=== PATIENT | male | born 1940 | race Caucasian/White ===

== ENCOUNTER 2021-11-16 11:26 | Emergency (ER) | payer MEDICARE, SELFPAY ==
--- NOTE | ~2021-11-16 | XR_ITS ---
EXAMINATION: XR finger 5th LT min 2V DATE: 11/16/2021 12:30 INDICATION: Fracture of left fifth proximal phalanx status post reduction. TECHNIQUE: 4 views of left hand fifth digit were obtained. COMPARISON: Left hand fifth digit radiographs at 12:06 PM FINDINGS: There is an oblique fracture of metaphysis of fifth proximal phalanx. The distal fracture f ragment demonstrates one cortical width radial displacement and impaction. There is a chip of bone at ulnar aspect of head of fifth metacarpal. 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 IMPRESSION: 1. Oblique fracture of metaphysis of fifth proximal phalanx with improvement in alignment. 2. Chip of bone at ulnar aspect of head of fifth metacarpal, which may be an avulsion fracture. Reviewed, dictated and finalized at location A. OVER IMPRESSION: 1. Oblique fracture of metaphysis of fifth proximal phalanx with improvement in alignment. 2. Chip of bone at ulnar aspect of head of fifth metacarpal, which may be an av ulsion fracture.
--- NOTE | ~2021-11-16 | XR_ITS ---
EXAMINATION: XR finger 5th LT min 2V DATE: 11/16/2021 12:08 INDICATION: Left hand fifth digit injury. TECHNIQUE: 4 views of left hand fifth digit were obtained. COMPARISON: None. FINDINGS: There is an oblique fracture of metaphysis of fifth proximal phalanx. The distal fracture f ragment demonstrates impaction, 2 mm radial displacement, and 28 degrees ulnar angulation. There is a calcification at ulnar aspect of metacarpophalangeal joint. There is mild osteoarthritis of fifth pr oximal interphalangeal joint. IMPRESSION: 1. Oblique fracture of metaphysis of fifth proximal phalanx. Reviewed, dictated and finalized at location A. D DESIGN ENGINEER
[2021-11-16 11:53] VITALS: BP 127/74; PULSE 78; RESP 16; TEMP 36.3; O2SAT 98
--- NOTE | 2021-11-16 12:55 | ED.UPPEXIN ---
HPI - Extremity Injury (Upper) General Chief Complaint: Extremity Injury, Upper Stated Complaint: possible break L pinky finger Source: patient Mode of arrival: ambulatory Limitations: no limitations History of Present Illness HPI narrative: this is a an 81-year-old gentleman that presents with injury to his left 5th finger, after he injured it after a fall otherwise there is pain level about a 2/10 has no numbness or tingling. complaint: injury to: left Onset (ago): hour(s) Other Extremity Injury: Left: fingers ( 5th finger) Handedness: right Place: home Severity: moderate Severity scale (1-10): 3 Relieving factors: immobilization Related Data Home Medications Medication Instructions Recorded Confirmed [facility] Vitamin 2 tab-cap PO DAILY 10/10/19 11/16/21 lisinopril 10 mg PO DAILY 10/10/19 11/16/21 lysine [L-Lysine] 500 mg PO DAILY 10/10/19 11/16/21 omega 7-wat-evx-fish oil [Fish Oil] 1 cap PO TID 10/10/19 11/16/21 simvastatin 40 mg PO DAILY 10/10/19 11/16/21 timolol maleate 1 drp OPHTHALMIC (EYE) DAILY 10/10/19 11/16/21 Adult Low Dose Aspirin 81 mg PO DAILY 11/16/21 11/16/21 Allergies Allergy/AdvReac Type Severity Reaction Status Date / Time No Known Allergies Allergy Verified 11/16/21 11:58 Review of Systems Review of Systems: All systems reviewed & are unremarkable except as noted in HPI and below [facility] Past Medical History Medical History (Updated 11/16/21 @ 13:07 by Michael Blackman MD) Arthritis Hyperlipidemia Hypertension Myocardial infarct, old Exam HENMT: Head: normal to inspection Eyes: Conjunctivae: conjunctivae normal Pupils: Equal, round and reactive pupils present Neck: Neck: normal visual inspection and no lymphadenopathy Chest: Chest palpation & inspection: normal inspection of the chest Resp: Effort & Inspection: normal respiratory effort Cardio: Rate: regular rate Rhythm: regular rhythm GI: GI Palp: Yes Soft to palpation Percussion: Yes normal to percussion : Testes: Testes normal Back/Spine/Pelvis: Back: no CVA tenderness Skin: General skin exam: normal color Rashes: no rashes Neuro: General: patient oriented x3 Extrem: Other: Undisplaced left 5th finger with some swelling Psych: Appearance: grossly normal Mental Status: mental status grossly normal Course Course Emergency Course: reviewed x-ray which showed a proximal left 5th finger fracture with dislocation, post reduction shows improved alignment and reviewed reviewed this with the patient added a ulnar gutter to stabilize the proximal fracture of his left 5th finger. Vital Signs Vital signs: Vital Signs Temperature 36.3 C L 11/16/21 11:53 Pulse Rate 78 11/16/21 11:53 Respiratory Rate 16 11/16/21 11:53 Blood Pressure 127/74 11/16/21 11:53 Pulse Oximetry 98 11/16/21 11:53 Temperature 36.3 C L 11/16/21 11:53 Pulse Rate 78 11/16/21 11:53 Respiratory Rate 16 11/16/21 11:53 Blood Pressure 127/74 11/16/21 11:53 Pulse Oximetry 98 11/16/21 11:53 Critical Care Time Critical Care Time Critical Care Time: No Discharge Plan Discharge Clinical Impression: Finger fracture, left Qualifiers: Encounter type: initial encounter Finger: little finger Fracture type: closed Phalanx: proximal Fracture alignment: displaced Qualified Code(s): S62.617A - Displaced fracture of proximal phalanx of left little finger, initial encounter for closed fracture Patient Disposition: Home, Self-Care Condition: Stable Instructions: Antibiotic Form, Finger Fracture (ED) Additional Instructions: advised to take Tylenol or Motrin for pain and discomfort and to follow-up with primary care physician within the next week for further evaluation and treatment possible referral to Plastic surgery or Orthopedics. Prescriptions: No Action Adult Low Dose Aspirin 81 mg PO DAILY RF: 0 simvastatin 40 mg tablet 40 mg PO DAILY RF: 0 timolol maleate 0.25 % drops
== END 2021-11-16 13:16 | disposition home or self-care (01) ==
PROVIDERS: Emergency Provider Emergency Medicine; PCP Family Medicine
DX: S62.617A Displaced fracture of proximal phalanx of left little finger, initial encounter for closed fracture (principal); W19.XXXA Unspecified fall, initial encounter; E78.5 Hyperlipidemia, unspecified; I10 Essential (primary) hypertension
CPT/HCPCS: 26725; 73140; 99283; 99285

== ENCOUNTER 2021-11-26 09:28 | Outpatient (CLI) | payer MEDICARE, SELFPAY ==
--- NOTE | ~2021-11-26 | XR_ITS ---
XR hand LT min 3V DATE: 11/26/2021 09:45 INDICATION: Pain and swelling of left hand following fall 2010 days ago TECHNIQUE: 3 views COMPARISON: None FINDINGS: Diffuse osteopenia. There is prominent osteoarthritic change at the first carpometacarpal joint. There is a cortical fracture of the medial aspect of the head of the fifth metacarpal bone. There is a linear oblique fracture through the metaphysis and proximal shaft of the proximal phalanx of the fifth digit with no significant displacement. IMPRESSION: Small linear cortical fracture of the ulnar aspect of the head of the fifth metacarpal sallie ne Linear oblique minimally displaced fracture of the metaphysis and proximal shaft of the proximal phal anx of the fifth digit Osteopenia Prominent osteoarthritic change of first carpal metacarpal joint Reviewed, dictated and finalized at location A. DDED SYSTEMS DESIGNER IMPRESSION: Small linear cortical fracture of the ulnar aspect of the head of t he fifth metacarpal bone Linear oblique minimally displaced fracture of the metaphysis and proximal shaf t of the proximal phalanx of the fifth digit Osteopenia Prominent osteoarthritic change of first carpal metacarpal joint
== END 2021-11-26 09:29 | disposition home or self-care (01) ==
LOC: CHSIMG 09:31
PROVIDERS: PCP Family Medicine; Visit Provider Orthopaedic Surgery
DX: M79.642 Pain in left hand (principal)
CPT/HCPCS: 73130

== ENCOUNTER 2021-12-24 07:48 | Outpatient (CLI) | payer MEDICARE, SELFPAY ==
--- NOTE | ~2021-12-24 | XR_ITS ---
XR hand LT min 3V DATE: 12/24/2021 08:06 INDICATION: Fracture follow-up TECHNIQUE: 4 views COMPARISON: 11/26/2021 left hand FINDINGS: There is a minimally displaced linear oblique fracture through the metaphysis and proximal shaft of the proximal phalanx of the fifth digit without interval change in position or alignment sin ce 11/26/2021. There is subtle increased density and diminished lucency at the fracture site consisten t with healing. Small linear densities again noted at the ulnar aspect of the head of the fifth metacarpal bone; smal l cortical fracture is not excluded. Prominent osteophytic change at the first carpometacarpal joint. Diffuse osteopenia. IMPRESSION: Healing fracture of the proximal phalanx of the fifth digit without interval change in po sition or alignment Possible small linear cortical fracture at the ulnar aspect of the head of the fifth metacarpal Reviewed, dictated and finalized at location B. LOPMENT TECHNICAL LEAD IMPRESSION: Healing fracture of the proximal phalanx of the fifth digit without interval change in position or alignment Possible small linear cortical fracture at the ulnar aspect of the head of the fifth metacarpal
== END 2021-12-24 07:49 | disposition home or self-care (01) ==
LOC: CHSLAB 07:50
PROVIDERS: PCP Family Medicine; Visit Provider Orthopaedic Surgery
DX: M79.642 Pain in left hand (principal)
CPT/HCPCS: 73130

== ENCOUNTER 2024-10-15 09:47 | Emergency (ER) | payer MEDICARE, SELFPAY ==
[2024-10-15 09:49] VITALS: BP 119/46; PULSE 92; RESP 18; TEMP 37.1; O2SAT 97
[2024-10-15 09:59] VITALS: O2SAT 97
--- NOTE | 2024-10-15 09:59 | PC.NURSE ---
Covid culture sent to lab
--- NOTE | 2024-10-15 10:27 | ED.URI ---
HPI - URI/Sore Throat General Chief Complaint: Upper Respiratory Infection Stated Complaint: flu like symptoms Source: patient Mode of arrival: ambulatory Limitations: no limitations History of Present Illness HPI Narrative: this is a an 84-year-old male presents with some chills and feeling feverish although patient is afebrile, denies any cough congestion there is no nasal discharge no shortness of breath or chest pain. The patient called his primary care and was told to come to the emergency department to have COVID performed. Onset (ago): day(s) Consistency: constant Severity: mild Related Data Home Medications Medication Instructions Recorded Confirmed omega 9-rhp-ivt-fish oil 1,000 mg 1 cap PO TID 10/10/19 10/15/24 (120 mg-180 mg) capsule (Fish Oil) timolol maleate 0.25 % eye drops 1 drp ophthalmic (eye) DAILY 10/10/19 10/15/24 Adult Low Dose Aspirin 81 mg PO DAILY 11/16/21 10/15/24 Allergies Allergy/AdvReac Type Severity Reaction Status Date / Time No Known Allergies Allergy Verified 10/15/24 10:00 Review of Systems Review of Systems: All systems reviewed & are unremarkable except as noted in HPI and below PMF[facility] Past Medical History Medical History Arthritis History of ASCVD (arteriosclerotic cardiovascular disease) Hyperlipidemia Hypertension Myocardial infarct, old Surgical History Surgical History History of hernia repair bilateral inguinal 02/2011 History of PTCA 1996 Family History Family History Other Arthritis High cholesterol Hypertension Social History Social History Smoking status: Never smoker Alcohol intake: never Substance use: never Substance use type: does not use Lack of Transportation: No Lack of Food: Never True Current Housing: I Have Housing Concerned About Future Housing: No Difficulty Paying Gas/Electric Bills: No Difficulty Paying for Meds: No Currently Unemployed: No Education: High School Diploma/GED Living arrangements: with family Occupation/Education: retired Gender identity (if verbalized by the patient): Male Sexual Orientation (if Verbalized by the Patient): Straight or Heterosexual Spiritual care concerns: No Exam Const: General: healthy appearing, no acute distress and alert Nutritional Appearance: well nourished Orientation/consciousness: patient oriented x3 HENMT: Head: normal to inspection Eyes: Conjunctivae: conjunctivae normal Neck: Neck: normal visual inspection and no lymphadenopathy Chest: Chest palpation & inspection: normal inspection of the chest Resp: Effort & Inspection: normal respiratory effort Auscultation: clear to auscultation bilaterally Cardio: Rate: regular rate Rhythm: regular rhythm GI: GI Palp: Yes Soft to palpation : General: Yes bladder normal to palpation Skin: General skin exam: normal color Rashes: no rashes Neuro: General: patient oriented x3 and moves all extremities Course Course Emergency Course: Patient took Tylenol home currently afebrile COVID RSV and influenza performed and reviewed with patient. Vital Signs Vital signs: Vital Signs Temperature 37.1 C 10/15/24 09:49 Pulse Rate 92 10/15/24 09:49 Respiratory Rate 18 10/15/24 09:49 Blood Pressure 119/46 L 10/15/24 09:49 Pulse Oximetry 97 10/15/24 09:49 Oxygen Delivery Room Air 10/15/24 09:49 Temperature 37.1 C 10/15/24 09:49 Pulse Rate 92 10/15/24 09:49 Respiratory Rate 18 10/15/24 09:49 Blood Pressure 119/46 L 10/15/24 09:49 Pulse Oximetry 97 10/15/24 09:59 Oxygen Delivery Room Air 10/15/24 09:59 MDM - URI/Sore Throat Lab Data Labs: Lab Results 10/15/24 Range/Units 09:51 Influenza A (RT-PCR) Pending Influenza B (RT-PCR) Pending RSV (RT-PCR) Pending SARS-CoV-2 RNA (RT-PCR) Pending Critical Care Time Critical Care Time Critical Care Time: No Discharge Plan Discharge Clinical Impression: Viral infection Patient Disposition: Home, Self-Care Condition: Stable Instructions: Antibiotic Form, Viral Syndrome (ED) Additional Instructions: Advise to continue Tylenol as needed get rest drink plenty of fluids and follow with primary if symptoms persist or worsen. Prescriptions: No Action Adult Low Dose Aspirin 81 mg PO DAILY lisinopril 10 mg tablet 10 mg PO DAILY Qty: 90 1RF simvastatin 40 mg tablet 40 mg PO DAILY Qty: 90 1RF timolol maleate 0.25 % drops 1 drp ophthalmic (eye) DAILY Rx Instructions: each eye omega 7-mxw-ejo-fish oil [Fish Oil] 1,000 mg (120 mg-180 mg) Capsule 1 cap PO TID Follow-up/Referrals: UNKNOWN,DOCTOR [Non-Staff] - Time of Disposition: 10:51
[2024-10-15 10:32] LABS: SARS-CoV-2 RNA PCR Negative (Negative)
[2024-10-15 10:49] LABS: Influenza A QL RT-PCR Negative (Negative); Influenza B QL RT-PCR Negative (Negative); RSV RNA, RT-PCR Negative (Negative)
== END 2024-10-15 10:56 | disposition home or self-care (01) ==
PROVIDERS: Emergency Provider Emergency Medicine; PCP Family Medicine
DX: B34.9 Viral infection, unspecified (principal); E78.5 Hyperlipidemia, unspecified; I10 Essential (primary) hypertension; I25.2 Old myocardial infarction; Z20.822 Contact with and (suspected) exposure to COVID-19
CPT/HCPCS: 87637; 99283